=== PATIENT | male | born 1965 | race Caucasian/White ===

== ENCOUNTER 2020-08-03 18:47 | Emergency (ER) | payer OTHER ==
[~2020-08-03] VITALS: Ht 177.8 cm; Wt 77.1 kg
[2020-08-03 18:50] VITALS: BP 140/92
--- NOTE | 2020-08-03 18:55 | NUR ---
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 STABLE VITALS. MEDICALLY CLEARED BY ERMD PROVIDER.
== END 2020-08-03 19:06 ==
LOC: ER 18:50
DX: Z02.89 Encounter for other administrative examinations (principal)